=== PATIENT | female | born 1970 | race Caucasian/White ===

== ENCOUNTER → 2020-09-30 11:07 | Outpatient (CLI) | payer MEDICARE, OTHER, SELFPAY ==
--- NOTE | 2020-09-30 11:08 | DI.US.S_ITS ---
PROCEDURE: US PELVIC COMPLETE INDICATIONS: 6 month FU US TECHNIQUE: Real-time scanning was performed of the pelvic organs, with image documentation. Additional endovaginal scanning was necessary due to incomplete visualization of the adnexal and endometrial structures by transabdominal scanning. COMPARISON: [facility], US, US PELVIC COMPLETE WITH TRANSVAGINAL, 03/03/2020, 10:03. [facility] Ultrasound, US, US PELVIC COMPLETE WITH TRANSVAGINAL, 11/27/2019, 13:35. [facility], US, US PELVIC COMPLETE, 04/21/2020, 15:40. FINDINGS: Transabdominal scanning: Limited scanning through the kidneys shows no hydronephrosis. No pathologic free abdominal or pelvic fluid. Endovaginal scanning: Uterus: Uterus is normal in size at 7.8 x 4.3 x 6.1 cm. The endometrium measures up to 8.6 mm in combined thickness. There is a 3.7 cm fibroid seen on the left, adjacent to the endometrial stripe. Ovaries: The right ovary measures 2.3 x 1.5 x 2 cm and demonstrates an unremarkable sonographic appearance. The left ovary itself is not well seen. There is a left-sided cyst which may be related to the ovary that measures 3.7 x 3.6 x 3 cm. No findings of ovarian torsion can be seen. IMPRESSION: There is a left ovarian cyst seen that measures up to 3.7 cm. No significant ovarian tissue can be seen separate from the cyst. There is a 3.7 cm fibroid seen on the left, adjacent to the endometrial stripe, which has grown over time. Dictated by: Kelvin Vizcarra M.D. on 09/30/2020 at 11:48 Approved by: Kelvin Vizcarra M.D. on 09/30/2020 at 11:51
== END ==
PROVIDERS: PCP Nurse Practitioner Obstetrics & Gynecology; Referring Provider Specialist; Visit Provider Specialist
DX: N85.00 Endometrial hyperplasia, unspecified (principal); N95.0 Postmenopausal bleeding; D25.9 Leiomyoma of uterus, unspecified; N83.202 Unspecified ovarian cyst, left side
CPT/HCPCS: 76856

== ENCOUNTER → 2020-10-30 09:33 | Outpatient (CLI) | payer MEDICARE, SELFPAY ==
[2020-10-30 10:19] LABS: COVID19 -Nasal RAPID Negative (Negative)
== END ==
PROVIDERS: PCP Nurse Practitioner Obstetrics & Gynecology; Visit Provider Specialist
DX: Z01.812 Encounter for preprocedural laboratory examination (principal); Z20.822 Contact with and (suspected) exposure to COVID-19
CPT/HCPCS: 87635

== ENCOUNTER 2020-10-31 07:36 | Day surgery (SDC) | payer MEDICARE, OTHER, SELFPAY ==
--- NOTE | 2020-10-31 | PATH_ITS ---
[facility] Accession Number: [id number] . 01 Material submitted: . endometrium - ENDOMETRIAL BIOPSIES . 02 Diagnosis: Endometrium, Biopsies: Inactive/noncycling endometrium with occasional thick-walled vessels, suggestive of polyp in the appropriate radiologic setting. No evidence of neoplasia or atypical hyperplasia. MRV 11/05/2020 1228 Local . 02 Electronically signed: . Sonia Reeves MD, Pathologist NPI- [id number] . 01 Gross description: . ENDOMETRIAL BIOPSIES: Received in formalin are minute fragments of mucoid and hemorrhagic material measuring 1.0 x 1.0 x 0.3 cm in aggregate. Submitted in toto in 1 cassette. /SHARON 11/03/2020 1905 Local . 02 Pathologist provided ICD-10: N95.0 . 02 CPT . 065516 Performed at: 01 [facility] [address], [place], [place] [id number] MD Antony Potter MD Phone: [phone] Performed at: 02 [facility] [address] [place], [place] [id number] MD Sonia Reeves MD Phone: [phone]
[2020-10-31 07:56] VITALS: BP 120/79; PULSE 67; RESP 16; TEMP 36.4; O2SAT 97; BMI 27.3
[2020-10-31] MEDS: LACTATED RINGERS 1,000 ML 42 ML IV (08:05)
--- NOTE | 2020-10-31 08:19 | PM.PREOP ---
Pre-operative Note COVID-19 COVID-19 status: Negative Result date/Date tested (Pos, Neg/Pending): 10/30/20 Interval Note History & Physical reviewed/Exam performed by Physician: Yes Changes to H&P: No
--- NOTE | 2020-10-31 09:00 | SUR.OPER ---
Lithotomy on padded OR bed, head on pillow, arms secured on padded arm boards at <90 degrees abduction. Legs secured in padded yellow fins stirrups.
[2020-10-31 09:20] VITALS: BP 142/73; PULSE 92; RESP 12; TEMP 36.2; O2SAT 98
--- NOTE | 2020-10-31 09:24 | PM.OP.1 ---
Operative Date/Time/Diagnoses Date of procedure: 10/31/20 Time of procedure: 09:24 Pre-op diagnosis: Postmenopausal bleeding Post-op diagnosis: same Procedure & Clinicians Procedure: Hysteroscopy D&C Same procedure as scheduled: Yes Indications: Postmenopausal bleeding Surgeon: Perla Huerta Click Yes if Unassisted: Yes Anesthesia Type: General Operative Notes Findings: Normal exam under anesthesia, Possible endometrial polyp, thin endometrium otherwise Closure Type: not applicable Specimen(s): other (Endometrial biopsy) Estimated Blood Loss (mL): 2 Blood products transfused: none Procedure in detail: The patient was brought to the operating room where she underwent general anesthesia. She was placed in low stirrups She was prepped and draped in usual sterile fashion with pulsatile stockings in place and functional, warming in place. Her bladder was drained with in and out catheter. A single-tooth tenaculum was placed on the anterior lip of the cervix and the uterus dilated to #8 Hegar dilator. The hysteroscope was placed into the uterus with a sorbitol solution running and under constant suction. The resecting loop set at 80 W of cutting was used to resect the possible polyp down to the level of the endometrium. A endometrial curettage was performed. The polyp and the endometrial curettage were sent to pathology. The patient went to recovery room in good condition counts of instruments and sponges were correct. The sorbitol solution I=O approximately 1000 mL. Complications: none Post-operative Condition: stable Disposition: same day surgery Plan for aftercare: Home when awake and stable
[2020-10-31 09:25] VITALS: BP 130/88; PULSE 82; RESP 12; O2SAT 98
[2020-10-31 09:30] VITALS: BP 134/59; PULSE 74; RESP 12; O2SAT 100
[2020-10-31 09:35] VITALS: BP 132/75; PULSE 72; RESP 12; O2SAT 100
[2020-10-31] MEDS: OXYCODONE/ACETAMINOPHEN 5/325 TABLET 1 TAB PO (09:37)
[2020-10-31 09:42] VITALS: BP 141/73; PULSE 75; RESP 12; TEMP 36.7; O2SAT 99
== END 2020-10-31 09:51 | disposition home or self-care (01) ==
PROVIDERS: PCP Nurse Practitioner Obstetrics & Gynecology; Referring Provider Specialist; Visit Provider Specialist
PROC: 0UDB8ZZ Extraction of Endometrium, Via Natural or Artificial Opening Endoscopic (ICD-10-PCS; CPT 58558; principal; 2020-10-31 08:45)
DX: N95.0 Postmenopausal bleeding (principal); K21.9 Gastro-esophageal reflux disease without esophagitis
CPT/HCPCS: 58558; J0330; J1100; J1885; J2405; J2704; J3010